=== PATIENT | female | born 1955 | race Caucasian/White ===

== ENCOUNTER → 2021-09-12 | Day surgery (SDC) | payer BC | END | disposition home or self-care (01) | LOC: JMAMMO-SUR 08:45 | PROVIDERS: ATTEND Physician Assistant | PROC: 0H9U3ZX Drainage of Left Breast, Percutaneous Approach, Diagnostic (ICD-10-PCS; principal; 2021-09-12) | DX: N60.12 Diffuse cystic mastopathy of left breast (principal) | CPT/HCPCS: 19083; 76942-TC; 77065-TC; 87899; A4648 ==